=== PATIENT | male | born 1985 | race Caucasian/White ===

== ENCOUNTER 2019-04-23 17:39 | Inpatient (IN) | payer SELFPAY ==
[2019-04-23 17:41] VITALS: BP 117/72; PULSE 117; RESP 20; TEMP 36.7; O2SAT 99; BMI 22.6
--- NOTE | 2019-04-23 17:54 | ED.VIS.GEN ---
History of Present Illness Chief Complaint: ETOH Intox Informant: Patient Onset: Days Context: Gradual Onset Timing: Continuous Current Severity: Moderate Maximum Severity: Moderate Narrative: The patient is a 33-year-old male who presents to the emergency department requesting alcohol detox. Patient states he has been an alcoholic for over 2 years. He states that he drinks 6-15 beers a day. He states it is affecting his life and he wants to get sober. He states that he has been drinking the past 2 days, but states it has been much less. He states he is just trying to nona his symptoms. He does admit to some anxiousness and a mild tremor. He has withdrawn before, but has never had a seizure. He takes no daily medications. He denies being suicidal or homicidal. Prior similar symptoms: No Recent Illness/Hospitalization: No Past Medical History - Allergies and Home Meds Allergies/Adverse Reactions: Allergies No Known Allergies Allergy (Verified 04/23/19 17:41) Prior records reviewed: Yes Past Medical History: - - Alcohol abuse and dependence Surgical History: noncontributory Review of Systems General: Denies: Chills, Fever, Sweats Eyes: Denies: Visual changes - bilaterally, Diplopia ENT: Denies: Rhinorrhea, Sore throat Cardiovascular: Denies: Chest pain, Palpitations Respiratory: Denies: Dyspnea, Cough, Dyspnea on exertion Gastrointestinal: Denies: Abdominal pain, Nausea, Vomiting, Diarrhea, Melena, Hematochezia Genitourinary: Denies: Dysuria, Hematuria, Frequency Musculoskeletal: Denies: Back pain, Extremity Pain Skin: Denies: Rash, Wounds Neurological: Denies: Headache, Weakness, Numbness Physical Exam Vital Signs/Narrative: Vital Signs Temp Pulse Resp BP Pulse Ox 04/23/19 17:41 98.1 F 117 H 20 H 117/72 99 Inital Vital Signs reviewed: Yes General: Well nourished, Well developed, No Acute Distress Head: Normocephalic, Atraumatic Eyes: Perrl, EOMI ENT: Moist mucous membranes, No rhinorrhea Neck: Supple, Nontender Cardiovascular: Regular rate, Regular rhythm, No murmurs Respiratory: No distress, CTA bilaterally, Chest nontender Abdomen: Soft, Nontender, Nondistended, Normal bowel sounds Back: Nontender, Normal Inspection Extremities: Nontender, No edema Skin: Normal color, No rash Neurological: Alert, Oriented x3, Cranial nerves II-XII grossly intact, Normal Strength, Normal Sensation Psychological: Normal affect, Normal Mood Diagnostic/Tx/Re-eval Laboratory Results 04/23/19 18:08: WBC 11.5 H, RBC 4.82, Hgb 16.1, Hct 48.3, MCV 100.2 H, MCH 33.4 H, MCHC 33.3, RDW Std Deviation 43.5, RDW Coeff of Filippo 11.8, Plt Count 244, MPV 8.8, Immature Gran % (Auto) 0.500, Neut % (Auto) 63.8, Lymph % (Auto) 23.8, [place] % (Auto) 10.5 H, Eos % (Auto) 1.0, Baso % (Auto) 0.4, Absolute Neuts (auto) 7.3, Absolute Lymphs (auto) 2.73, Nucleated RBC % 0 04/23/19 18:08: Sodium 139, Potassium 4.1, Chloride 108 H, Carbon Dioxide 24.0, Anion Gap 7, BUN 17, Creatinine 0.99, Estim Creat Clear Calc 109.15, Est GFR (MDRD) Af Amer 111, Est GFR (MDRD) Non-Af 91, BUN/Creatinine Ratio 17.1, Glucose 97, Calcium 8.6, Total Bilirubin 0.30, AST 22, ALT 34, Alkaline Phosphatase 139 H, Total Protein 7.8, Albumin 3.9, Globulin 3.9, Albumin/Globulin Ratio 1.0 04/23/19 18:08: Ethyl Alcohol Pending - Medical Decision Making The patient presents to the emergency department requesting detox. He does have history of alcohol abuse and dependence. He has been cutting down on his drinking, but is still tachycardic with a tremor. He was given Ativan. Metabolic work-up was pursued and was unremarkable. At this point, given the patient's history I do feel that he would benefit from inpatient detox therapy based on symptoms of alcohol withdrawal. Impression 1. Alcohol withdrawal
[2019-04-23 18:21] LABS: Absolute Lymphocyte Count 2.73 X10^3/uL (0.83-4.51); Absolute Neutrophil Count 7.3 X10^3/uL (2.0-7.7); Basophil# 0.05 X10^3/uL; Basophil% 0.4 % (0-1); Eosinophil# 0.12 X10^3/uL; Hematocrit 48.3 % (40-54); Hemoglobin 16.1 g/dL (13.0-16.5); Lymphocyte # 2.73 X10^3/ul (4.0); Lymphocyte % 23.8 % (19-41); Mean Corp Hgb Conc 33.3 g/dL (32-36); Mean Corpuscular Hgb 33.4 pg (27.0-32.0); Mean Corpuscular Volume 100.2 fL (80-94); Mean Platelet Vol. 8.8 fl (6.2-12.0); Monocyte# 1.21 X10^3/uL; Monocyte% 10.5 % (0-10); NRBC Flagged by Analyzer 0 % (0-5); Neutrophil # 7.31 X10^3/uL (2.7-7.7); Neutrophil % 63.8 % (47-70); Platelet Count 244 K/mm3 (150-450); RBC Distribution Width CV 11.8 % (11.6-14.6); RBC Distribution Width SD 43.5 fl (35.1-43.9); Red Blood Count 4.82 M/mm3 (4.6-6.2); White Blood Count 11.5 K/mm3 (4.4-11.0)
[2019-04-23 18:35] LABS: AST(SGOT) 22 U/L (15-37); Alanine Aminotransfer ALT/SGPT 34 U/L (16-61); Albumin, Serum 3.9 g/dL (3.2-5.0); Alkaline Phosphatase 139 U/L (45-117); Anion Gap 7 (5-15); BUN 17 mg/dL (7-18); BUN/Creat Ratio 17.1 RATIO (10-20); Calcium,Total 8.6 mg/dL (8.5-10.1); Chloride 108 mmol/L (98-107); Creatinine, Serum 0.99 mg/dL (0.70-1.30); EST Glomerular Filtration Rate 91 mL/min (>60); Est Glom Filt Rate - Afr Amer 111 mL/min (>60); Estimated Creatinine Clearance 109.15 ml/min; Globulin 3.9 g/dL (2.2-4.2); Glucose 97 mg/dL (74-106); Potassium 4.1 mmol/L (3.5-5.1); Protein, Total 7.8 g/dL (6.4-8.2); Sodium Level 139 mmol/L (136-145)
[2019-04-23] MEDS: LORazepam 2 MG/ML Syringe 1 MG IV (18:48)
[2019-04-23] MEDS: 0.9% Normal Saline 1,000 ML 1000 ML IV (18:48)
[2019-04-23 18:53] VITALS: BP 126/81; PULSE 96; RESP 12; O2SAT 95
--- NOTE | 2019-04-23 18:53 | HP.PCM_ITS ---
Problem List (1) Alcohol withdrawal Status: Acute Qualifiers: Complication of substance-induced condition: uncomplicated Qualified Code(s): F10.230 - Alcohol dependence with withdrawal, uncomplicated History of Present Illness Date of Admission: 04/23/19 Chief Complaint: anxiety, tremors The patient is a 33 year old M presents seeking treatment for alcohol withdrawal. Patient drinks roughly 12 beers per day. Wishes to quit so that he can get treatment for his anxiety and bipolar disorder. Knows that in order to do so that he needs to get over his withdrawal. Patient tried cutting back and then started experiencing anxiety, tremors, nausea. Presented to the emergency room and received lorazepam IV. Patient wishes to quit so that he can maintain sobriety and have a normal life. Patient expressed understanding that he had this is a lifelong perrin in regards to addiction. He states that he got involved with alcohol as he tried to use it for sleeping agents and then gradually over time was consuming larger and larger quantities and could not stop. [] Past Medical History Medical History: Medical History (Last Updated 04/23/19 @ 18:[address] Hossein Loera, DO) Bipolar disorder F31.9 Allergies No Known Allergies Allergy (Verified 04/23/19 17:41) Surgical History: noncontributory Psychiatric History: Anxiety, Bipolar Smoking Status: Heavy Smoker (>10/day) Tobacco Use: Cigarettes Alcohol: Heavy Drugs: Marijuana - occasional - *Family History Maternal History Items: - - no alcoholism Review of Systems Constitutional: Denies: Anorexia, Chills, Fever, Night Sweats Eyes: Denies: Blurred vision, Double vision HEENT: Denies: Head Aches, Sinus Congestion, Sinus Drainage Cardiovascular: Denies: Chest Pain, Palpitations Respiratory: Denies: Cough, Shortness of breath at rest, Sputum production Gastrointestinal: Reports: Nausea. Denies: Abdominal Pain Genitourinary: Denies: Dysuria Musculoskeletal: Denies: Joint Pain, Joint Tenderness Skin: Denies: Dryness, Jaundice Neurological: Denies: Numbness, Tingling, Focal weakness Psychiatric: Reports: Anxiety. Denies: Depression Hematologic/ Lymphatic: Denies: Easy Bruising, Easy Bleeding, Hx of blood clot Comment: All review of systems were negative except as mentioned above in the history of present illness and the other review of systems. VTE Information - Inpt Only VTE Present on Admission: No VTE Mechan Device Prophylaxis: None VTE Pharm Prophylaxis ordered?: No Patient Problems: Active and Suspected Problems Alcohol withdrawal (Acute) - Physical Exam Vitals/I&O's: Vital Signs Temp Pulse Resp BP Pulse Ox 36.7 C 117 H 20 H 117/72 99 04/23/19 17:41 04/23/19 17:41 04/23/19 17:41 04/23/19 17:41 04/23/19 17:41 Oxygen Delivery Method Room Air Weight: 73.4 kg Body Mass Index (BMI) 22.6 General: Alert, Cooperative, No apparent distress HEENT: Atraumatic, Normocephalic Oral: Moist Mucosa, No Gingival or Mucosal Lesions/ Ulcerations Neck: No Nodes, Thyroid Normal Size and Texture Lungs: Clear to auscultation, Normal air movement, No rhonchi, No wheeze Cardiovascular: Regular rate, Regular Rhythm, Normal S1, Normal S2, No murmurs Abdomen: Bowel Sounds Present, Soft, Non Tender, Non-Distended, No Hepato- splenomegaly Extremities: No edema, No Calf Tenderness Skin: No rashes, No breakdown Musculoskeletal: No Tenderness to Palpation of Joints or Extremities, No Muscle Wasting Psych/Mental Status: Normal Affect, Appropriate Laboratory Results 04/23/19 18:08: WBC 11.5 H, RBC 4.82, Hgb 16.1, Hct 48.3, MCV 100.2 H, MCH 33.4 H, MCHC 33.3, RDW Std Deviation 43.5, RDW Coeff of Filippo 11.8, Plt Count 244, MPV 8.8, Immature Gran % (Auto) 0.500, Neut % (Auto) 63.8, Lymph % (Auto) 23.8, [place] % (Auto) 10.5 H, Eos % (Auto) 1.0, Baso % (Auto) 0.4, Absolute Neuts (auto) 7.3, Absolute Lymphs (auto) 2.73, Nucleated RBC % 0 04/23/19 18:08: Sodium 139, Potassium 4.1, Chloride 108 H, Carbon Dioxide 24.0, Anion Gap 7, BUN 17, Creatinine 0.99, Estim Creat Clear Calc 109.15, Est GFR (MDRD) Af Amer 111, Est GFR (MDRD) Non-Af 91, BUN/Creatinine Ratio 17.1, Glucose 97, Calcium 8.6, Total Bilirubin 0.30, AST 22, ALT 34, Alkaline Phosphatase 139 H, Total Protein 7.8, Albumin 3.9, Globulin 3.9, Albumin/Globulin Ratio 1.0 04/23/19 18:08: Ethyl Alcohol Pending Assessment/Plan All Active Problems Alcohol withdrawal (Acute) 1. alcohol withdrawal: * will initiate phenobarbital taper * thiamine and folate * case mgmt to assist with outpt programs 2. anxiety/bipolar * patient already has a plan to follow up with program prior to arrival 3. VTE prophylaxis: low risk. Inpatient E&M: 03965 Init Hosp L2
[2019-04-23 18:57] VITALS: BP 126/81; PULSE 96; RESP 14; TEMP 36.7; O2SAT 98
[2019-04-23 19:44] VITALS: BMI 21.9
[2019-04-23 19:48] VITALS: BP 119/72; PULSE 88; RESP 16; TEMP 36.6; O2SAT 98
[2019-04-23 19:50] VITALS: BMI 21.9
[2019-04-23] MEDS: Phenobarbital 32.4 MG Tablet 64.8 MG PO (20:11)
[2019-04-23 20:18] LABS: Amphetamine Urine VISTA NEGATIVE (<1000 ng/mL); Barbiturate Urine VISTA NEGATIVE (< 200 ng/mL); Benzodiazepine Urine VISTA NEGATIVE (< 200 ng/mL); Cocaine Urine VISTA NEGATIVE (< 300 ng/mL); Ecstacy Urine VISTA NEGATIVE (< 500 ng/mL); Methadone Urine VISTA NEGATIVE (< 300 ng/mL); PCP Urine VISTA NEGATIVE (< 25 ng/mL); THC Urine VISTA NEGATIVE (< 50 ng/mL); Vista UDS pH Range 6
[2019-04-24] MEDS: Phenobarbital 32.4 MG Tablet 64.8 MG PO ×6 (00:22→20:32)
[2019-04-24 00:51] VITALS: BP 118/79; PULSE 87; RESP 14; TEMP 36.4; O2SAT 99
[2019-04-24] MEDS: hydrOXYzine PAM 25 MG Capsule 50 MG PO (02:00)
[2019-04-24 04:36] VITALS: BP 112/77; PULSE 85; RESP 16; TEMP 36.4; O2SAT 99
[2019-04-24 07:45] VITALS: BP 124/75; PULSE 88; RESP 14; TEMP 36.4; O2SAT 99
[2019-04-24] MEDS: Thiamine Hydrochloride 100 MG Tablet PO (07:49)
[2019-04-24] MEDS: Folic Acid 1 MG Tablet PO (07:49)
--- NOTE | 2019-04-24 08:04 | PN_ITS ---
Patient Problems: Active and Suspected Problems (Last Updated 04/23/19 @ 18:[address] Hossein Loera, DO) Alcohol withdrawal (Acute) Reason for Visit: Follow-up on alcohol withdrawal Subjective: Patient was seen and examined. He feels much improved. He had been trying to detox himself by himself. Denies any tremor or dizziness or nausea or vomiting. Objective: Physical exam: General: Alert, Cooperative, No apparent distress HEENT: Atraumatic, Normocephalic Oral: Moist Mucosa, No Gingival or Mucosal Lesions/ Ulcerations Neck: No Nodes, Thyroid Normal Size and Texture Lungs: Clear to auscultation, Normal air movement, No rhonchi, No wheeze Cardiovascular: Regular rate, Regular Rhythm, Normal S1, Normal S2, No murmurs Abdomen: Bowel Sounds Present, Soft, Non Tender, Non-Distended, No Hepato- splenomegaly Extremities: No edema, No Calf Tenderness Skin: No rashes, No breakdown Musculoskeletal: No Tenderness to Palpation of Joints or Extremities, No Muscle Wasting Psych/Mental Status: Normal Affect, Appropriate Vitals/I&O's: Vital Signs Temp Pulse Resp BP Pulse Ox 97.6 F L 88 14 124/75 H 99 04/24/19 07:45 04/24/19 07:45 04/24/19 07:45 04/24/19 07:45 04/24/19 07:45 Oxygen Delivery Method Room Air Weight: 71.214 kg Body Mass Index (BMI) 21.9 Intake and Output for Last 24 Hours 04/22/19 04/23/19 04/24/19 23:59 23:59 23:59 Intake Total 1000 / 1300 500 / 500 Balance 1000 / 1300 500 / 500 Laboratory Results 04/23/19 18:08: WBC 11.5 H, RBC 4.82, Hgb 16.1, Hct 48.3, MCV 100.2 H, MCH 33.4 H, MCHC 33.3, RDW Std Deviation 43.5, RDW Coeff of Filippo 11.8, Plt Count 244, MPV 8.8, Immature Gran % (Auto) 0.500, Neut % (Auto) 63.8, Lymph % (Auto) 23.8, [place] % (Auto) 10.5 H, Eos % (Auto) 1.0, Baso % (Auto) 0.4, Absolute Neuts (auto) 7.3, Absolute Lymphs (auto) 2.73, Nucleated RBC % 0 04/23/19 18:08: Sodium 139, Potassium 4.1, Chloride 108 H, Carbon Dioxide 24.0, Anion Gap 7, BUN 17, Creatinine 0.99, Estim Creat Clear Calc 109.15, Est GFR (MDRD) Af Amer 111, Est GFR (MDRD) Non-Af 91, BUN/Creatinine Ratio 17.1, Glucose 97, Calcium 8.6, Total Bilirubin 0.30, AST 22, ALT 34, Alkaline Phosphatase 139 H, Total Protein 7.8, Albumin 3.9, Globulin 3.9, Albumin/Globulin Ratio 1.0 04/23/19 18:08: Ethyl Alcohol 16.0 04/23/19 18:50: Urine Opiates Screen NEGATIVE, Urine Methadone Screen NEGATIVE, Ur Barbiturates Screen NEGATIVE, Ur Phencyclidine Scrn NEGATIVE, Ur Amphetamines Screen NEGATIVE, U Methamphetamin-MDMA NEGATIVE, U Benzodiazepines Scrn NEGATIVE, Urine Cocaine Screen NEGATIVE, U Cannabinoids Screen NEGATIVE, Ur Drug Screen Comment Current Medications Acetaminophen (Tylenol) 500 mg PO Q4H PRN PRN PRN Reason: Temp > 100.4 F Dicyclomine HCl (Bentyl) 20 mg PO Q6H PRN PRN PRN Reason: abdominal discomfort Folic Acid (Folic Acid) 1 mg PO DAILY@0800 [facility] Last Admin: 04/24/19 07:49 Dose: 1 mg Documented by: Gabapentin (Neurontin) 300 mg PO Q8H PRN PRN PRN Reason: moderate to severe anxiety Hydroxyzine Pamoate (Vistaril Pamoate Capsule) 50 mg PO Q4H PRN PRN PRN Reason: mild anxiety Last Admin: 04/24/19 02:00 Dose: 50 mg Documented by: Ibuprofen (Motrin) 600 mg PO Q8H PRN PRN PRN Reason: Pain Score 1-10/10 Loperamide HCl (Imodium) 2 mg PO Q4H PRN PRN PRN Reason: LOOSE STOOLS Nicotine (Nicoderm Cq (Pbkc)) 21 mg TRANSDERM. DAILY [facility] Last Admin: 04/24/19 07:49 Dose: 21 mg Documented by: Ondansetron HCl (Zofran) 8 mg PO Q8H PRN PRN PRN Reason: NAUSEA Phenobarbital (Phenobarbital) 97.2 mg PO Q4H [facility]; Taper Stop: 04/28/19 01:29 Last Admin: 04/24/19 07:49 Dose: 97.2 mg Documented by: Sodium Chloride () 10 - 40 ml IV UD PRN PRN Reason: SALINE FLUSH Thiamine HCl (Vitamin B1) 100 mg PO DAILYCM RO Last Admin: 04/24/19 07:49 Dose: 100 mg Documented by: Trazodone HCl (Desyrel) 100 mg PO QHS PRN PRN Reason: INSOMNIA STROKE Vital Signs/Narrative: Vital Signs Temp Pulse Resp BP Pulse Ox 04/24/19 07:45 97.6 F L 88 14 124/75 H 99 04/24/19 04:36 97.6 F L 85 16 112/77 99 Medical Necessity - Tobacco Use Smoking Status: Current every day smoker Tobacco Use: Cigarettes Assessment/Plan All Active Problems (Last Updated 04/23/19 @ 18:[address] Hossein Loera, DO) Alcohol withdrawal (Acute) 1. Acute alcohol withdrawal, last CIWA score is 3, continue on alcohol withdrawal protocol as well thiamine, folic acid 2. Nicotine dependence, continue on nicotine replacement 3. Anxiety disorder, follow-up in outpatient planned 4. DVT ppx- low risk, early ambulation recommended Inpatient E&M: 92155 Subs Hosp L2
--- NOTE | 2019-04-24 10:37 | CASEMGMT ---
Addendum entered by Briseyda Foster 04/24/19 13:04: SW received message from at [facility] stating she completed assessment with pt. Pt plans on following up with [facility] for counseling and psychiatric services and has an appointment on 05/02/2019. Original Note: Social Work Note Pt is RAMP pt. SW spoke with Charge Nurse. Jennifer ELLIOTT from [facility] is out sick today but will be calling pt to complete assessment and discuss discharge plans for pt. Briseyda Foster SUBGRADE TESTER, NEUROSURGICAL PHYSICIAN ASSISTANT
[2019-04-24 12:39] VITALS: BP 118/73; PULSE 88; RESP 18; TEMP 36.6; O2SAT 98
[2019-04-24 17:30] VITALS: BP 121/64; PULSE 84; RESP 18; TEMP 36.5; O2SAT 98
[2019-04-24 22:00] VITALS: BP 101/65; PULSE 91; RESP 16; TEMP 37; O2SAT 100
[2019-04-25] MEDS: Phenobarbital 32.4 MG Tablet 64.8 MG PO ×6 (00:37→21:29)
[2019-04-25 04:43] VITALS: BP 111/73; PULSE 86; RESP 16; TEMP 36.6; O2SAT 98
[2019-04-25 04:44] VITALS: BP 111/73; PULSE 86; RESP 16; TEMP 36.6; O2SAT 98
[2019-04-25] MEDS: Folic Acid 1 MG Tablet PO (08:52)
[2019-04-25] MEDS: Thiamine Hydrochloride 100 MG Tablet PO (08:52)
[2019-04-25 08:55] VITALS: BP 111/78; PULSE 79; RESP 16; TEMP 36.7; O2SAT 100
--- NOTE | 2019-04-25 09:21 | CASEMGMT ---
Social Work Note Pt is also listed as self-pay. SW reviewed PFS notes. PFS attempted to call pt's room to discuss assistance programs but no answer. PFS states they mailed [employer] application and Medicaid number to pt and provided business card for pt to call with any questions. Pt does plan on following up with [facility] at discharge and [facility] should be able to assist pt with medicaid. Briseyda Foster LOOP SEWER, TRAFFIC OFFICER
[2019-04-25 14:50] VITALS: BP 106/71; PULSE 75; RESP 16; TEMP 36.7; O2SAT 100
--- NOTE | 2019-04-25 14:50 | PCM.PN.HOSP ---
Patient Problems: Active and Suspected Problems (Last Updated 04/23/19 @ 18:[address] Hossein Loera, DO) Alcohol withdrawal (Acute) Reason for Visit: Follow-up on alcohol withdrawal Subjective: Patient was seen and examined. He denied any new complaints. No acute events overnight. Last CIWA score was 0. Objective: Physical exam: General: Alert, Cooperative, No apparent distress HEENT: Atraumatic, Normocephalic Oral: Moist Mucosa, No Gingival or Mucosal Lesions/ Ulcerations Neck: No Nodes, Thyroid Normal Size and Texture Lungs: Clear to auscultation, Normal air movement, No rhonchi, No wheeze Cardiovascular: Regular rate, Regular Rhythm, Normal S1, Normal S2, No murmurs Abdomen: Bowel Sounds Present, Soft, Non Tender, Non-Distended, No Hepato-splenomegaly Extremities: No edema, No Calf Tenderness Skin: No rashes, No breakdown Musculoskeletal: No Tenderness to Palpation of Joints or Extremities, No Muscle Wasting Psych/Mental Status: Normal Affect, Appropriate Vitals/I&O's: Vital Signs Temp Pulse Resp BP Pulse Ox 98.0 F 79 16 111/78 100 04/25/19 08:55 04/25/19 08:55 04/25/19 08:55 04/25/19 08:55 04/25/19 08:55 Oxygen Delivery Method Room Air Weight: 71.214 kg Body Mass Index (BMI) 21.9 Intake and Output for Last 24 Hours 04/23/19 04/24/19 04/25/19 23:59 23:59 23:59 Intake Total 1000 / 1300 1100 / 1600 1540 / 1540 Balance 1000 / 1300 1100 / 1600 1540 / 1540 Current Medications Acetaminophen (Tylenol) 500 mg PO Q4H PRN PRN PRN Reason: Temp > 100.4 F Dicyclomine HCl (Bentyl) 20 mg PO Q6H PRN PRN PRN Reason: abdominal discomfort Folic Acid (Folic Acid) 1 mg PO DAILY@0800 [facility] Last Admin: 04/25/19 08:52 Dose: 1 mg Documented by: Gabapentin (Neurontin) 300 mg PO Q8H PRN PRN PRN Reason: moderate to severe anxiety Hydroxyzine Pamoate (Vistaril Pamoate Capsule) 50 mg PO Q4H PRN PRN PRN Reason: mild anxiety Last Admin: 04/24/19 02:00 Dose: 50 mg Documented by: Ibuprofen (Motrin) 600 mg PO Q8H PRN PRN PRN Reason: Pain Score 1-10/10 Loperamide HCl (Imodium) 2 mg PO Q4H PRN PRN PRN Reason: LOOSE STOOLS Nicotine (Nicoderm Cq (Pbkc)) 21 mg TRANSDERM. DAILY RO Last Admin: 04/25/19 08:53 Dose: 21 mg Documented by: Ondansetron HCl (Zofran) 8 mg PO Q8H PRN PRN PRN Reason: NAUSEA Phenobarbital (Phenobarbital) 64.8 mg PO Q4H RO; Taper Stop: 04/28/19 01:29 Last Admin: 04/25/19 12:35 Dose: 64.8 mg Documented by: Sodium Chloride () 10 - 40 ml IV UD PRN PRN Reason: SALINE FLUSH Thiamine HCl (Vitamin B1) 100 mg PO DAILYCM RO Last Admin: 04/25/19 08:52 Dose: 100 mg Documented by: Trazodone HCl (Desyrel) 100 mg PO QHS PRN PRN Reason: INSOMNIA Medical Necessity - Tobacco Use Smoking Status: Current every day smoker Tobacco Use: Cigarettes Assessment/Plan All Active Problems (Last Updated 04/23/19 @ 18:[address] Hossein Loera, DO) Alcohol withdrawal (Acute) 1. Acute alcohol withdrawal, improving, continue on alcohol withdrawal protocol as well thiamine, folic acid 2. Nicotine dependence, continue on nicotine replacement 3. Anxiety disorder, follow-up in outpatient planned 4. DVT ppx- low risk, early ambulation recommended Inpatient E&M: 28086 Subs Hosp L2
[2019-04-25 21:31] VITALS: BP 125/85; PULSE 85; RESP 16; TEMP 36.4; O2SAT 100
[2019-04-26] MEDS: Phenobarbital 32.4 MG Tablet 64.8 MG PO ×2 (01:24→08:21)
[2019-04-26 01:29] VITALS: BP 116/81; PULSE 74; RESP 16; TEMP 36.5; O2SAT 99
--- NOTE | 2019-04-26 08:00 | DCINST_ITS ---
- Discharge Diagnoses Current Active Problems: Current Active and Chronic Problems (Last Updated 04/23/19 @ 18:[address] Hossein Loera, DO) Alcohol withdrawal (Acute) Reason(s) for Visit for Discharge Instructions: Acute alcohol withdrawal You will use the following diet at home:: Regular, Other Your liquids should be the consistency of: Regular/Thin Discharge Activity: Return to Normal Activity Additional Instructions: You are strongly advised to avoid alcohol or use of any illicit drug. Avoid smoking. Follow-up with your outpatient rehab program as scheduled. Allergies/Adverse Reactions: Allergies No Known Allergies Allergy (Verified 04/23/19 17:41) Medications to take at Discharge Folic Acid 1 mg PO DAILY@0800 30 Days #30 tab 04/26/19 Nicotine [Nicoderm Cq] 21 mg TRANSDERM. DAILY 30 Days #30 patch 04/26/19 Phenobarbital 32.4 mg PO Q6H 1 Days #3 tab 04/26/19 Phenobarbital 64.8 mg PO Q6H 1 Days #3 tab 04/26/19 Thiamine Hydrochloride [Vitamin B1] 100 mg PO DAILYCM 30 Days #30 tab 04/26/19 The following prescriptions were given: Folic Acid 1 mg PO DAILY@0800 30 Days #30 tab Transmission Status: Received by [facility] Nicotine [Nicoderm Cq] 21 mg TRANSDERM. DAILY 30 Days #30 patch Transmission Status: Received by [facility] Phenobarbital 64.8 mg PO Q6H 1 Days #3 tab Transmission Status: Received by [facility] Phenobarbital 32.4 mg PO Q6H 1 Days #3 tab Transmission Status: Received by [facility] Thiamine Hydrochloride [Vitamin B1] 100 mg PO DAILYCM 30 Days #30 tab Transmission Status: Received by [facility] Primary Care Physician: Care Physician,No Primary [Primary Care Provider] - Please follow up with your Primary Care Physician in: within 1-2 weeks Test Results: Test results from this visit will be discussed in further detail at your follow- up appointment, if applicable. Proposed Discharge Date: 04/26/19
[2019-04-26] MEDS: Folic Acid 1 MG Tablet PO (08:21)
[2019-04-26] MEDS: Thiamine Hydrochloride 100 MG Tablet PO (08:21)
[2019-04-26 08:25] VITALS: BP 123/81; PULSE 84; RESP 16; TEMP 36.7; O2SAT 98
[2019-04-26] MEDS: Magnesium Hydroxide 30 ML UDC PO (10:53)
--- NOTE | 2019-04-27 07:37 | DS.PCM_ITS ---
Discharge Date and Diagnosis Date of Admission: 04/23/19 Date of Discharge: 04/26/19 - Primary Discharge Diagnosis Acute alcohol withdrawal Nicotine dependence - Secondary Discharge Diagnosis Alcohol abuse Anxiety disorder Hospital Course and Treatment None Operations: None Procedures: None Summary of Care Provided: The patient is a 33 year old M with past medical history of anxiety disorder, not on medications who comes in embolus and anxiety seeking treatment for alcohol withdrawal. Patient admits to drinking about 12 beers every day and expressed desire to quit. He tried to quit by himself and had severe anxiety with tremors. He admits to drinking over the last 2 years mainly for anxiety and also to be able to sleep. He was admitted onto the [facility] floor, and on a phenobarbital withdrawal protocol. He continued to improve and was discharged to follow-up with his outpatient program. Subjective: On the day of discharge, patient was seen and examined. He denied any new complains. His CIWA score had been zero. Objective: Physical exam: General: Alert, Cooperative, No apparent distress HEENT: Atraumatic, Normocephalic Oral: Moist Mucosa, No Gingival or Mucosal Lesions/ Ulcerations Neck: No Nodes, Thyroid Normal Size and Texture Lungs: Clear to auscultation, Normal air movement, No rhonchi, No wheeze Cardiovascular: Regular rate, Regular Rhythm, Normal S1, Normal S2, No murmurs Abdomen: Bowel Sounds Present, Soft, Non Tender, Non-Distended, No Hepato- splenomegaly Extremities: No edema, No Calf Tenderness Skin: No rashes, No breakdown Musculoskeletal: No Tenderness to Palpation of Joints or Extremities, No Muscle Wasting Psych/Mental Status: Normal Affect, Appropriate - Physical Exam Vitals/I&O's: Vital Signs Temp Pulse Resp BP Pulse Ox 98.0 F 84 16 123/81 H 98 04/26/19 08:25 04/26/19 08:25 04/26/19 08:25 04/26/19 08:25 04/26/19 08:25 Oxygen Delivery Method Room Air Weight: 71.214 kg Body Mass Index (BMI) 21.9 Intake and Output for Last 24 Hours 04/25/19 04/26/19 04/27/19 23:59 23:59 23:59 Intake Total 1540 / 2540 1300 / 1300 Balance 1540 / 2540 1300 / 1300 Discharge Diet: No Restrictions Discharge Activity: Return to Normal Activity Home Medications: Medications to take at Discharge Folic Acid 1 mg PO DAILY@0800 30 Days #30 tab 04/26/19 Nicotine [Nicoderm Cq] 21 mg TRANSDERM. DAILY 30 Days #30 patch 04/26/19 Thiamine Hydrochloride [Vitamin B1] 100 mg PO DAILYCM 30 Days #30 tab 04/26/19 Following Prescrptions Were Given to Patient: Folic Acid 1 mg PO DAILY@0800 30 Days #30 tab Transmission Status: Received by [facility] Nicotine [Nicoderm Cq] 21 mg TRANSDERM. DAILY 30 Days #30 patch Transmission Status: Received by [facility] Thiamine Hydrochloride [Vitamin B1] 100 mg PO DAILYCM 30 Days #30 tab Transmission Status: Received by [facility] Primary Care Physician: Care Physician,No Primary [Primary Care Provider] - Please follow up with your Primary Care Physician in: within 1-2 weeks Disposition: Home Minutes spent on discharge:: 40 Patient Condition:: Stable Medical Necessity - Tobacco Use Smoking Status: Current every day smoker Tobacco Use: Cigarettes Meaningful Use Info Meaningful Use Diagnoses (Choose all that apply): None applicable Inpatient E&M: 14229 Disch Hosp
== END 2019-04-26 12:51 | disposition home or self-care (01) | DRG 897 ==
LOC: ED 18:23 → MS3 19:17
PROVIDERS: Emergency Provider Emergency Medicine; Visit Provider Internal Medicine
DX: F10.230 Alcohol dependence with withdrawal, uncomplicated (principal); F17.210 Nicotine dependence, cigarettes, uncomplicated; F41.9 Anxiety disorder, unspecified; Y90.0 Blood alcohol level of less than 20 mg/100 ml
CPT/HCPCS: 80053; 80307; 80320; 85025; 99284; 99406; J7030; A4216; G0480

== ENCOUNTER 2020-08-05 10:48 | Emergency (ER) | payer SELFPAY ==
[2020-08-05 10:48] VITALS: BP 132/78; PULSE 114; RESP 18; TEMP 36.3; O2SAT 97; BMI 23.0
[2020-08-05] MEDS: 0.9% Normal Saline 1,000 ML 1000 ML IV (11:49)
[2020-08-05] MEDS: hydrOXYzine PAM 25 MG Capsule PO (11:49)
[2020-08-05] MEDS: Ondansetron 4 MG/2 ML Vial IV (11:49)
[2020-08-05 11:57] LABS: Absolute Neutrophil Count 6.4 X10^3/uL (2.0-7.7); Basophil# 0.04 X10^3/uL; Basophil% 0.4 % (0-1); Eosinophil# 0.07 X10^3/uL; Eosinophils% 0.7 % (0-5); Hematocrit 47.9 % (40-54); Hemoglobin 16.1 g/dL (13.0-16.5); Lymphocyte % 21.9 % (19-41); Mean Corp Hgb Conc 33.6 g/dL (32-36); Mean Corpuscular Volume 98.2 fL (80-94); Mean Platelet Vol. 8.6 fl (6.2-12.0); Monocyte# 0.96 X10^3/uL; NRBC Flagged by Analyzer 0 % (0-5); Neutrophil # 6.35 X10^3/uL (2.7-7.7); Neutrophil % 66.3 % (47-70); Platelet Count 287 K/mm3 (150-450); RBC Distribution Width CV 12.1 % (11.6-14.6); RBC Distribution Width SD 44.1 fl (35.1-43.9); Red Blood Count 4.88 M/mm3 (4.6-6.2); White Blood Count 9.6 K/mm3 (4.4-11.0)
--- NOTE | 2020-08-05 12:06 | RAD_ITS ---
STUDY: X-RAY - ACUTE ABDOMINAL SERIES REASON FOR EXAM: Male, 34 years old. Two-year history of chest pain. Nausea and vomiting and dizziness for one month. TECHNIQUE: Single view of the chest. Supine, and erect view(s) of the abdomen were obtained. COMPARISON: None. FINDINGS: EKG electrodes are seen. The lungs are clear and expanded. Scattered calcified granulomas. Normal size heart. Normal mediastinum and john. Normal visualized pulmonary arteries. Normal visualized aortic arch and descending thoracic aorta. There is a moderate amount of colonic fecal material. The soft tissue structures of the abdomen and pelvis are unremarkable. Normal visualized osseous structures. RAD/Acute Abdomen Inc Chest IMPRESSION: Moderate amount of fecal material is seen in the colon. Electronically Signed: Star Bonilla MD at 12:32 EDT , Service support ,
[2020-08-05 12:12] LABS: ALB/GLOB Ratio 1.1 RATIO (0.9-2.4); AST(SGOT) 17 U/L (15-37); Alanine Aminotransfer ALT/SGPT 23 U/L (16-61); Albumin, Serum 4.2 g/dL (3.2-5.0); Alkaline Phosphatase 142 U/L (45-117); Anion Gap 7 (5-15); BUN 12 mg/dL (7-18); BUN/Creat Ratio 11.1 RATIO (10-20); Calcium,Total 9.3 mg/dL (8.5-10.1); Chloride 104 mmol/L (98-107); Creatinine, Serum 1.08 mg/dL (0.70-1.30); EST Glomerular Filtration Rate 82 mL/min (>60); Est Glom Filt Rate - Afr Amer 100 mL/min (>60); Estimated Creatinine Clearance 101.06 ml/min; Globulin 3.7 g/dL (2.2-4.2); Glucose 100 mg/dL (74-106); Lipase 175 U/L (73-393); Potassium 4.1 mmol/L (3.5-5.1); Protein, Total 7.9 g/dL (6.4-8.2); Sodium Level 139 mmol/L (136-145)
[2020-08-05 12:47] VITALS: BP 116/80; PULSE 86; RESP 20; O2SAT 96
--- NOTE | 2020-08-05 12:53 | EDS_ITS ---
HPI History of Present Illness Chief Complaint: Chest Pain Narrative Narrative: Patient presenting secondary to abdominal pain nausea vomiting constipation and chest pain. Patient states that he chronically deals with chest pain. This really has not changed currently. Patient states over the course the last couple weeks he has been dealing with frequent nausea vomiting and early satiety. Patient states that over the course the last couple of days he has been feeling constipated. Patient states when he vomits occasionally there is small amounts of blood in it as well as undigested food. Patient denies any history of abdominal surgeries. He does state that he occasionally will get some epigastric and right upper quadrant pain associated with this. Patient states that he drinks around 6 beers a day, does smoke both marijuana as well as tobacco. No history of ulcers. No black or tarry stools. No unintended weight loss fevers chills night sweats. Patient denies any frequent NSAID use. Review of systems otherwise negative. [facility] Medical History Bipolar disorder Home Medications docusate sodium [Colace] 100 mg PO DAILY #10 cap 08/05/20 [Rx Last Taken Unknown] omeprazole 40 mg PO DAILY #30 cap 08/05/20 [Rx Last Taken Unknown] sucralfate [Carafate] 1 g PO Q6H #120 tab 08/05/20 [Rx Last Taken Unknown] Allergy/AdvReac Type Severity Reaction Status Date / Time No Known Allergies Allergy Verified 04/23/19 17:41 Social History Smoking Status: Current every day smoker tobacco type: cigarettes ROS ROS ED Constitutional Constitutional ED: Denies chills or fever(s) ENT ENT ED: Denies rhinorrhea Cardiovascular Cardiovascular: Reports chest pain Respiratory/Chest Respiratory/Chest: Denies cough or dyspnea Gastrointestinal Gastrointestinal: Reports abdominal pain, constipation, nausea and vomiting Genitourinary Genitourinary ED: Denies dysuria or hematuria Musculoskeletal Musculoskeletal: Denies back pain Integumentary Denies rash Neurologic Neurologic: Denies paresthesias or weakness Psychiatric Psychiatric: Denies depression Endocrine Endocrinology: Denies fatigue Allergic/Immunologic Allergic/Immunologic ED: Denies urticaria EXAM Physical Exam Const Vital Signs: 08/05/20 10:48 08/05/20 10:56 08/05/20 12:47 Temperature 97.3 F L Temperature Source Temporal Pulse Rate 114 H 86 Respiratory Rate 18 20 H Respiratory Effort Normal Non-Labored Respiratory Pattern Normal Blood Pressure 132/78 H 116/80 Blood Pressure Mean 96 92 Pulse Ox 97 96 Oxygen Delivery Method Room Air Room Air Positive well nourished and well developed General Appearance ED: well developed and NAD HEENT Reports moist mucous membranes Negative for trauma or tenderness Eyes EOMs intact bilaterally Neck no lymphadenopathy, supple and no JVD Chest Wall inspection of chest normal Resp normal respiratory effort and clear to auscultation bilaterally Cardio regular rate, regular rhythm, no murmurs and peripheral pulses 2+ throughout GI normal to inspection, nondistended, normoactive bowel sounds, non-tender and no masses Palpation: soft Back/Spine normal to inspection Extremity normal to inspection General Extremety ED: Negative for tenderness Neuro oriented x3 and no sensory deficits noted Sensorium / Orientation: alert Motor Exam: strength 5/5 throughout Psych mental status grossly normal Skin no rashes or lesions noted MDM MDM MDM Narrative Medical decision making narrative: Patient presented secondary to abdominal pain constipation nausea and vomiting in the setting of frequent alcohol use. He has benign exam of his abdomen I do not think that CT imaging is indicated. Abdominal x-ray by my personal interpretation as well as radiology show some constipation no evidence of obstructive process. CBC was found to be unremarkable, CMP shows normal electrolytes normal renal function mild elevation of the alkaline phosphatase lipase was normal at 175 no evidence of pancreatitis. Patient's overall presentation at this point given abdominal pain that is epigastric intermittent vomiting frequent alcohol use likely is associated with an element of alcoholic gastritis versus an ulcer. Patient be placed on a course of omeprazole and Carafate with follow-up with general surger y. He will be given a short course of Colace to alleviate his constipation. Patient understands signs and symptoms for which to return. Patient was discharged in stable condition. Lab Data Labs: Laboratory Results - last 24 hr 08/05/20 08/05/20 11:46 11:46 WBC 9.6 RBC 4.88 Hgb 16.1 Hct 47.9 MCV 98.2 H MCH 33.0 H MCHC 33.6 RDW Std Deviation 44.1 H RDW Coeff of Filippo 12.1 Plt Count 287 MPV 8.6 Immature Gran % (Auto) 0.700 Neut % (Auto) 66.3 Lymph % (Auto) 21.9 [place] % (Auto) 10.0 Eos % (Auto) 0.7 Baso % (Auto) 0.4 Absolute Neuts (auto) 6.4 Absolute Lymphs (auto) 2.10 Nucleated RBC % 0 Sodium 139 Potassium 4.1 Chloride 104 Carbon Dioxide 28.0 Anion Gap 7 BUN 12 Creatinine 1.08 Estim Creat Clear Calc 101.06 Est GFR (MDRD) Af Amer 100 Est GFR (MDRD) Non-Af 82 BUN/Creatinine Ratio 11.1 Glucose 100 Calcium 9.3 Total Bilirubin 0.40 AST 17 ALT 23 Alkaline Phosphatase 142 H Total Protein 7.9 Albumin 4.2 Globulin 3.7 Albumin/Globulin Ratio 1.1 Lipase 175 Radiography Diagnostic Testing: Radiology Impression Acute Abdomen Series 08/05/20 12:06 IMPRESSION: Moderate amount of fecal material is seen in the colon. Electronically Signed: Star Bonilla MD at 12:32 EDT , Service support , Discharge Plan Triage Chief Complaint: Chest Pain ED Provider: Tommie Floyd Dx/Rx/DC Orders Clinical Impression: Gastritis, Constipation Instructions: ED Gastritis (Adult) Prescriptions: New omeprazole 40 mg capsule,delayed release(DR/EC) 40 mg PO DAILY Qty: 30 RF: 0 sucralfate [Carafate] 1 gram tablet 1 g PO Q6H Qty: 120 RF: 0 docusate sodium [Colace] 100 mg capsule 100 mg PO DAILY Qty: 10 RF: 0 Primary Care Provider: Care Physician,No Primary Referrals: Katherine Linton MD [STAFF PHYSICIAN] - 1-2 Weeks Care Physician,No Primary [Primary Care Provider] - Disposition Disposition: Home, Self Care
[2020-08-05 13:09] VITALS: BP 119/78; PULSE 83; RESP 13; O2SAT 95
== END 2020-08-05 13:14 | disposition home or self-care (01) ==
PROVIDERS: Emergency Provider Emergency Medicine
DX: K29.70 Gastritis, unspecified, without bleeding (principal); F17.210 Nicotine dependence, cigarettes, uncomplicated; K59.00 Constipation, unspecified
CPT/HCPCS: 74022; 80053; 83690; 85025; 96361; 96374; 99283; J7030; A4216; J2405